=== PATIENT | female | born 1990 | race Caucasian/White ===

== ENCOUNTER 2017-10-21 01:19 | Emergency (ER) | payer BC ==
[~2017-10-21] VITALS: Ht 167.6 cm; Wt 61.2 kg
[~2017-10-21 01:19] MED LIST: ZOLOFT25 MG ORAL
[2017-10-21 01:37] VITALS: BP 114/83
--- NOTE | 2017-10-21 01:46 | Emergency Room Report ---
History of Present Illness General Chief Complaint: Alcohol Intoxication Source: EMS Present Illness HPI 27-year-old female presents to ED status post EtOH intoxication. Patient brought in by EMS. at bedside states that patient had more to drink than she is normally used to. Patient had one episode of vomiting. Upon arrival patient is intoxicated but is protecting airway. denies any drug use. No other aggravating or leading factors. No other associated symptoms Allergies: Coded Allergies: No Known Allergies (Unverified , 10/21/17) Patient History Past Medical History: none Past Surgical History: none Pertinent Family History: none Social History: Denies: smoking, alcohol use, drug use Last Menstrual Period: unk Now: No Immunizations: UTD Reviewed Nursing Documentation: PMH: Agreed, PSxH: Agreed Nursing Documentation-PMH Past Medical History: No History, Except For Review of Systems All Other Systems: limited Physical Exam Vital Signs Date Time Temp Pulse Resp B/P (MAP) Pulse Ox O2 Delivery O2 Flow Rate FiO2 10/21/17 01:14 86 16 102/89 98 Room Air Sp02 EP Interpretation: reviewed, normal General Appearance: no apparent distress, lethargic Head: normocephalic Eyes: bilateral eye normal inspection, bilateral eye PERRL ENT: normal ENT inspection Neck: normal inspection Respiratory: chest non-tender, lungs clear, normal breath sounds, speaking full sentences Cardiovascular #1: regular rate, rhythm, no edema Gastrointestinal: normal bowel sounds, non tender, soft, non-distended, no guarding, no rebound Rectal: deferred Genitourinary: no CVA tenderness Musculoskeletal: normal inspection Neurologic: other - intoxicated Psychiatric: other - intoxicated Skin: normal inspection Lymphatic: normal inspection Medical Decision Making Diagnostic Impression: Primary Impression: Acute alcoholic intoxication Qualified Codes: F10.929 - Alcohol use, unspecified with intoxication, unspecified ER Course Hospital Course 27-year-old female presents to ED status post EtOH intoxication Clinical course Patient placed on stretcher. Given that at bedside is able to provide an adequate history, I see no need to check blood work. EMS placed IV. I offered to provide IV hydration and Zofran which has been agreed to. Patient allowed to sleep. My assessment shows no evidence of SI/HI requiring psychiatric evaluation. Patient allowed to rest in now awake alert oriented x3. ambulating without difficulty. Family is at bedside and can take patient home. Diagnosis - ETOH intoxication stable and discharged to home. Followup with PMD. Return to ED if symptoms recur or worsen Last Vital Signs Date Time Temp Pulse Resp B/P (MAP) Pulse Ox O2 Delivery O2 Flow Rate FiO2 10/21/17 01:37 77 16 114/83 98 Room Air Status: improved Disposition: HOME, SELF-CARE Condition: Stable SKYLER PATINO M.D. Oct 21, 2017 01:46
[2017-10-21 03:48] VITALS: BP 114/83
== END 2017-10-21 03:49 | disposition home or self-care (01) ==
LOC: EDBD 01:19 → EMR 01:45
DX: F10.929 Alcohol use, unspecified with intoxication, unspecified (principal)
CPT/HCPCS: 96361; 96374; 99284; J2405